=== PATIENT | female | born 1960 | race Caucasian/White ===

== ENCOUNTER 2023-03-27 15:40 | Emergency (ER) | payer BC, SELFPAY ==
[2023-03-27] VITALS (18 sets, daily range): BP systolic 116–137; BP diastolic 66–86; PULSE 69–87; RESP 11–23; TEMP 36.6; O2SAT 97–100
--- NOTE | 2023-03-27 15:45 | RT.EKG_ITS ---
APPROVED REPORT Exam: Resting ECG Reason for Exam: chest pain Patient Location: E HR:83 bpm ECG Measurements Heart Rate 83 AXIS VT 139 P 37 QRSd 70 QRS 12 QT 363 T 32 QTc 428 Conclusion Sinus rhythm...normal P axis, V-rate 60- 99 Low voltage, precordial leads...precordial leads <1.0mV Consider anteroseptal infarct...Q >30mS, dimin R, V1-V2
--- NOTE | 2023-03-27 16:45 | DI.RAD_ITS ---
Exam(s) XR CHEST 2V PA LATERAL EXAM: XR CHEST 2V PA LATERAL CLINICAL HISTORY: cough TECHNIQUE: 2D digital imaging was performed of the chest. Two images were obtained. PA and lateral views were obtained. COMPARISON: No exams were available for comparison FINDINGS: MEDIASTINUM: Normal. HEART: Normal. PULMONARY VASCULATURE: Normal. LUNGS: Clear. PLEURAL SPACE: No pleural effusion or pneumothorax. BONE:Within normal limits for the patient's age. There is a dextroscoliosis of the lower thoracic sp ine. OTHER FINDINGS:Normal. IMPRESSION: No acute pulmonary findings. DATA REPOSITORY: RADIATION DOSE DELIVERED:
[2023-03-27 17:10] LABS: Source Nasal/Nares
[2023-03-27] MEDS: Ondansetron 4 MG/2 ML VIAL IVP (17:17)
[2023-03-27] MEDS: Ketorolac 30 MG/ML VIAL IVP (17:17)
[2023-03-27] MEDS: Meclizine 25 MG TAB PO ×2 (17:18→20:07)
[2023-03-27] MEDS: Lactated Ringers 1,000 ML 1000 ML IV (17:32)
--- NOTE | 2023-03-27 17:34 | ED.GENADUL_ITS ---
Discharge Plan Disposition Patient Disposition: Home Condition: Stable Discharge Details Clinical Impression: Vertigo, URI (upper respiratory infection), Hypokalemia ED Provider: Dionisio Kaba Home Meds and New Rx's Prescriptions: New ondansetron HCl 4 mg tablet 4 mg PO Q8H PRNQty: 7 0RF Continued venlafaxine 25 mg Tablet 25 mg PO 1XD oxybutynin chloride 2.5 mg Tablet 2.5 mg PO 1XD loratadine [Claritin] 10 mg Tablet 10 mg PO 1XD No Action prochlorperazine maleate 10 mg tablet 10 mg PO Q8H PRNQty: 12 0RF meclizine 25 mg tablet 25 mg PO BID PRN (Reason: dizziness) Qty: 30 0RF Discharge Instructions Instructions: Meclizine (By mouth), Ondansetron (By mouth), Vertigo (ED), Hypokalemia (ED), Upper Respiratory Infection (ED) Additional Instructions: Take meclizine tonight as needed for vertigo. Take ondansetron as needed tomorrow for nausea. Please contact your primary care physician to arrange follow-up. Call tomorrow. Return to the ER immediately for any worsening or new concerning symptoms. Discharge Data Discharge Date/Time-TO BE ENTERED AT DEPARTURE: 03/27/23 20:17 Medical Decision Making 0 --63-year-old female here with left ear pain and associated vertigo with vomiting as well as 5 days of productive cough. Patient is saturating well and in no respiratory distress. She does have rales on auscultation of her right lower lung. Left TM is bulging. Patient neurologically intact. For pneumonia will obtain chest x-ray. We will give meclizine for vertigo as well as Zofran for nausea. We will treat your pain with Toradol. -- cxr interpreted by radiology: No acute cardiopulmonary disease. Labs reviewed. Mild hypokalemia noted. Patient reassessed and symptoms resolved. Feeling much better. Suspect peripheral vertigo related to URI. Results were discussed with the patient. Plan for discharge with outpatient follow-up. Disposition decision was made weighing the risks and benefits of hospitalization versus outpatient treatment, the risk for further decompensation, and the patient's wishes. The patient was stable and requested discharge. Prior to discharge, my usual and customary return precautions were reviewed with the patient - this included follow-up instructions and reason to return to the emergency department if condition worsens, does not improve as expected, or other new concerns arise. Lab Data Lab results reviewed: Yes I reviewed the patient's lab results. HPI General Mode of arrival: ambulatory . Date/Time Provider Initiated Documentation: 03/27/23 16:51 . Limitations to Documentation: no limitations . Information obtained by: patient . HPI Narrative: 63-year-old female presents with chief complaint dizziness. Patient notes left ear pain described as a pressure and associated dizziness that started yesterday. Dizziness is described as vertigo. Patient states she had a chest cold over the past 5 days with productive cough. Patient has associated vomiting secondary to her vertigo. Patient states that she had similar vertigo a few years ago that required treatment in emergency department. Patient denies associated weakness, numbness, tingling, visual changes, headache. Related Data Home Medications Medication Instructions Recorded Confirmed loratadine 10 mg tablet (Claritin) 10 mg PO 1XD 03/27/23 03/27/23 oxybutynin chloride 2.5 mg tablet 2.5 mg PO 1XD 03/27/23 03/27/23 venlafaxine 25 mg tablet 25 mg PO 1XD 03/27/23 03/27/23 ondansetron HCl 4 mg tablet 4 mg PO Q8H PRN #7 tabs 03/28/23 meclizine 25 mg tablet 25 mg PO BID PRN dizziness #30 tabs 03/29/23 prochlorperazine maleate 10 mg 10 mg PO Q8H PRN #12 tabs 03/29/23 tablet Previous Rx's Medication Instructions Recorded ondansetron HCl 4 mg tablet 4 mg PO Q8H PRN #7 tabs 03/28/23 meclizine 25 mg tablet 25 mg PO BID PRN dizziness #30 tabs 03/29/23 prochlorperazine maleate 10 mg 10 mg PO Q8H PRN #12 tabs 03/29/23 tablet Allergies Allergy/AdvReac Type Severity Reaction Status Date / Time diphenhydramine Allergy Unknown Unverified 03/29/23 16:27 [From Benadryl] azithromycin Allergy Unverified 03/27/23 15:57 [From Zithromax Z-José Luis] erythromycin base Allergy Unverified 03/27/23 15:57 Penicillins Allergy Unverified 03/27/23 15:57 General Stated Complaint: GenMedical ABNER: 3 Review of Systems All systems reviewed & are unremarkable except as noted in HPI and below Constitutional Constitutional: Denies fever(s) Eyes Eyes: Denies loss of vision Cardiovascular Cardiovascular: Reports as per HPI Musculoskeletal Musculoskeletal: Denies numbness Neurologic Neurologic: Denies localized weakness, Denies loss of vision, Denies numbness and Denies sensory deficit PFSH All Active Problems (Updated 03/29/23 @ 19:04 by Jeny Abrams NP) Vertigo (Acute) URI (upper respiratory infection) (Acute) Hypokalemia (Acute) Social History Smoking/Tobacco Use Status: Never Smoking risk assessment performed?: Yes Substance use type: does not use Housing: house Do you feel safe at home: Yes Do you feel safe in your relationship?: Yes Exam Const General: cooperative and no acute distress HENMT Ears: TM normal on the right, mastoids normal and TM abnormal bulging on the left; not with effusion Mouth: moist mucous membranes Eyes Conjunctivae: normal conjunctivae Sclera: normal sclerae Neck Neck: trachea midline and supple Resp Auscultation: rales on the right in the lower lung cobos, no rhonchi and no wheezes Cardio Rate: regular rate and not tachycardic Rhythm: regular rhythm GI Palpation: soft, not firm, no guarding, no masses, not rigid and nontender Skin General skin exam: no rashes or lesions noted Neuro General: patient alert, patient awake and tone normal Cognition: normal cognition Speech: speech normal Motor: strength 5/5 throughout Sensory Exam: no sensory deficits noted Coordination: [id number] test normal and Romberg test normal Other: Rapid alternating movements normal Extrem General: no edema Psych Appearance: grossly normal Mental Status: mental status grossly normal Affect: anxious affect Course Vital Signs Vital signs: Vital Signs Temperature 36.6 C 03/27/23 15:49 Pulse 87 03/27/23 15:49 Respiratory Rate 18 03/27/23 15:49 Blood Pressure 116/86 03/27/23 15:49 Pulse Oximetry 98 03/27/23 15:49 Temperature 36.6 C 03/27/23 15:49 Temperature Source Skin 03/27/23 15:49 Pulse 87 03/27/23 15:49 Respiratory Rate 12 03/27/23 17:11 Respiratory Effort Normal 03/27/23 17:11 Blood Pressure 116/86 03/27/23 15:49 Pulse Oximetry 98 03/27/23 15:49 Oxygen Delivery Method Room Air 03/27/23 15:49 Oxygen Flow Rate 0 03/27/23 15:49 Lab/Test Results Lab/Test Results: Laboratory Tests Range/Units 03/27/23 17:05 COVID-19 Source Nasal/Nares
[2023-03-27 17:40] LABS: COVID-19 PCR Negative (Negative)
[2023-03-27 17:40] LABS: Abs Immature Grans 0.01 10^3/uL (0.0-0.06); Absolute Basophil Count 0.04 10^3/uL (0.0-0.2); Absolute Eosinophil Count 0.13 10^3/uL (0.0-0.7); Absolute Lymphocyte Count 0.97 10^3/uL (1.2-3.4); Absolute Monocyte Count 0.65 10^3/uL (0.1-0.8); Basophils % 0.8; Eosinophils % 2.6; HCT 41.4 % (36.0-46.0); HGB 13.8 g/dL (11.2-15.7); Immature Grans % 0.2; Lymphocytes % 19.4; MCH 29.9 pg (27.0-33.0); MCHC 33.3 % (32.0-36.0); MCV 90 fL (80-95); MPV 9.6 fL (8.0-11.0); Platelet Count 243 10^3/uL (130-400); RBC 4.62 10^6/uL (3.93-5.22); RDW 12.9 % (11.7-14.6); RDW-SD 42.5 fL
[2023-03-27 17:57] LABS: ALT 34 U/L (14-59); AST 22 U/L (15-37); Albumin 3.5 g/dL (3.4-5.0); Alkaline Phosphatase 80 U/L (46-116); BUN 13 mg/dL (7-18); Bilirubin, Total 0.3 mg/dL (0.2-1.0); CREATININE 0.7 mg/dL (0.55-1.02); Calcium 9.1 mg/dL (8.5-10.1); Chloride 103 mmol/L (98-107); Estimated GFR 96.52 (mL/min/1.73m2); Glucose 106 mg/dL (74-106); Potassium 3.4 mmol/L (3.5-5.1); Sodium 139 mmol/L (136-145); Total Protein 7.4 g/dL (6.4-8.2)
--- NOTE | 2023-03-27 18:24 | DI.VRAD_ITS ---
PROCEDURE INFORMATION: Exam: XR Chest Exam date and time: 03/27/2023 6:12 PM Age: 63 years old Clinical indication: Cough TECHNIQUE: Imaging protocol: Radiologic exam of the chest. Views: 2 views. Total images: 2 COMPARISON: No relevant prior studies available. FINDINGS: Lungs: Lungs appear clear. No visible consolidation. No pulmonary masses. Pulmonary vascularity is normal. Pleural spaces: No pleural effusion or pneumothorax. Heart/Mediastinum: Heart size is normal. Bones/joints: No acute osseous abnormalities. Lower thoracic dextroscoliosis. IMPRESSION: No acute cardiopulmonary disease. Dictated and Authenticated by: Mariah Dubose MD. Ordering:DORINA Nichole MD
[2023-03-27] MEDS: Potassium Chloride 20 MEQ TABCR PO (20:07)
[2023-03-27] MEDS: Ondansetron O.D.T. 4 MG TABEF PO (20:07)
--- NOTE | 2023-03-28 11:40 | W.ED.FU ---
Date of service: 03/28/23 Time of Service: 11:41 Follow Up Plan: Notified by patient that prescription for zofran not received by pharmacy. ED visit note and discharge instructions by Dr. Kaba reviewed, plan at that time was for meclizine and zofran for home treatment. Unclear why medication was not successfullly transmitted. No CI to zofran noted on [facility] record review; short of course of zofran sent to patient's pharmacy.
--- NOTE | 2023-03-28 12:08 | NUR.NOTE ---
called stating that the prescription to help stop vomiting was not at the pharmacy. I looked up the chart, and asked Dr Mcgovern to send the odansetran to the pharmacy. It was noted in discharge instructions but not sent. Just called and notified hiim that the prescription was at the pharmacy.Nursing Note:
== END 2023-03-27 20:17 | disposition home or self-care (01) ==
PROVIDERS: Emergency Provider Student in an Organized Health Care Education/Training Program
DX: J06.9 Acute upper respiratory infection, unspecified (principal); R42 Dizziness and giddiness; E87.6 Hypokalemia
CPT/HCPCS: 80053; 87635; 93005; 96361; 96374; 96375; 99284; 71046; 85025; 93010; 99283; J1885; J2405

== ENCOUNTER 2023-03-29 14:09 | Emergency (ER) | payer BC, SELFPAY ==
--- NOTE | 2023-03-29 14:15 | RT.EKG_ITS ---
APPROVED REPORT Exam: Resting ECG Reason for Exam: Patient Location: E HR:63 bpm ECG Measurements Heart Rate 63 AXIS IA 175 P 6 QRSd 88 QRS 28 QT 465 T 31 QTc 477 Conclusion Sinus rhythm...normal P axis, V-rate 60- 99 sinus rhythm normal axis, normal intervals, non ischemic
[2023-03-29 14:19] VITALS: BP 146/79; PULSE 80; RESP 18; O2SAT 98
[2023-03-29] MEDS: Normal Saline 1,000 ML 1000 ML IV ×2 (16:07→17:40)
[2023-03-29] MEDS: Prochlorperazine 10 MG/2 ML VIAL IVP (16:10)
[2023-03-29 16:26] LABS: Abs Immature Grans 0.01 10^3/uL (0.0-0.06); Absolute Basophil Count 0.03 10^3/uL (0.0-0.2); Absolute Eosinophil Count 0.16 10^3/uL (0.0-0.7); Absolute Lymphocyte Count 1.51 10^3/uL (1.2-3.4); Absolute Neutrophil Count 1.93 10^3/uL (1.2-6.7); Basophils % 0.8; Eosinophils % 4.1; HCT 41.6 % (36.0-46.0); HGB 14.2 g/dL (11.2-15.7); Immature Grans % 0.3; Lymphocytes % 38.3; MCH 30.3 pg (27.0-33.0); MCHC 34.1 % (32.0-36.0); MCV 89 fL (80-95); MPV 10.1 fL (8.0-11.0); Monocytes % 7.6; Neutrophils % 48.9; Platelet Count 261 10^3/uL (130-400); RBC 4.68 10^6/uL (3.93-5.22); RDW 12.6 % (11.7-14.6); WBC 3.94 10^3/uL (4.4-10.8)
[2023-03-29 16:40] LABS: ALT 30 U/L (14-59); AST 26 U/L (15-37); Albumin 3.6 g/dL (3.4-5.0); Alkaline Phosphatase 78 U/L (46-116); Anion Gap 11.4 mmol/L (3-11); BUN 11 mg/dL (7-18); Bilirubin, Total 0.3 mg/dL (0.2-1.0); CO2 25.6 mmol/L (21.0-32.0); CREATININE 0.8 mg/dL (0.55-1.02); Calcium 9.3 mg/dL (8.5-10.1); Chloride 102 mmol/L (98-107); Estimated GFR 82.23 (mL/min/1.73m2); Glucose 147 mg/dL (74-106); Potassium 3.1 mmol/L (3.5-5.1); Sodium 139 mmol/L (136-145); Total Protein 7.5 g/dL (6.4-8.2)
--- NOTE | 2023-03-29 17:28 | ED.GENADUL_ITS ---
Discharge Plan Disposition Patient Disposition: Home Condition: Improving Discharge Details Clinical Impression: Vertigo, Hypokalemia Primary Care Provider: Unknown,Unknown ED Provider: eJny Abrams Home Meds and New Rx's Prescriptions: New prochlorperazine maleate 10 mg tablet 10 mg PO Q8H PRNQty: 12 0RF Continued venlafaxine 25 mg Tablet 25 mg PO 1XD oxybutynin chloride 2.5 mg Tablet 2.5 mg PO 1XD loratadine [Claritin] 10 mg Tablet 10 mg PO 1XD meclizine 25 mg tablet 25 mg PO BID PRN (Reason: dizziness) Qty: 30 0RF ondansetron HCl 4 mg tablet 4 mg PO Q8H PRNQty: 7 0RF Medical Decision Making Presents with intractable symptoms of vertigo and able to keep her p.o. medications down. Will obtain IV access give IV Compazine. She declines Benadryl. After receiving 1 L of normal saline and the Compazine she states that her symptoms are much improved. She is now able to open her eyes and move her head some. We will give a second liter of normal saline with 10 mEq of potassium to replete potassium of 3.1. She will also be given meclizine 25 mg orally as she is able to tolerate p.o. The patient is markedly improved after the above treatment and has been safely really ambulated. She is stating she feels able to be discharged to home at this point. Will dispense oral Compazine and meclizine for home use Medical Records Medical records reviewed: Yes I reviewed the patient's medical records. Lab Data Lab results reviewed: Yes I reviewed the patient's lab results. Lab results narrative: Laboratory Results - last 24 hr 03/29/23 03/29/23 14:50 14:50 WBC 3.94 L RBC 4.68 Hgb 14.2 Hct 41.6 MCV 89 MCH 30.3 MCHC 34.1 RDW 12.6 Plt Count 261 MPV 10.1 Immature Gran % 0.3 Neutrophils % 48.9 Lymphocytes % 38.3 Monocytes % 7.6 Eosinophils % 4.1 Basophils % 0.8 Nucleated RBC % 0.0 Absolute Neutrophils 1.93 Absolute Lymphocytes 1.51 Absolute Monocytes 0.30 Absolute Eosinophils 0.16 Absolute Basophils 0.03 Sodium 139 Potassium 3.1 L Chloride 102 Carbon Dioxide 25.6 Anion Gap 11.4 H BUN 11 Creatinine 0.8 Est GFR (CKD-EPI 2020) 82.23 Glucose 147 H Calcium 9.3 Total Bilirubin 0.3 AST 26 ALT 30 Alkaline Phosphatase 78 Total Protein 7.5 Albumin 3.6 HPI General Mode of arrival: ambulatory . Date/Time Provider Initiated Documentation: 03/29/23 14:25 . Limitations to Documentation: no limitations . Information obtained by: patient . HPI Narrative: This is a 63-year-old female patient with a past medical history significant for vertigo who continues to have her symptoms despite using ondansetron and meclizine. She states that she has been unable to keep these medications down so her symptoms have been ongoing. She has no new symptoms she has had no fever has reported symptoms similar to this in the past with viral illness. Related Data Home Medications Medication Instructions Recorded Confirmed loratadine 10 mg tablet (Claritin) 10 mg PO 1XD 03/27/23 03/27/23 meclizine 25 mg tablet 25 mg PO BID PRN dizziness #30 tabs 03/27/23 oxybutynin chloride 2.5 mg tablet 2.5 mg PO 1XD 03/27/23 03/27/23 venlafaxine 25 mg tablet 25 mg PO 1XD 03/27/23 03/27/23 ondansetron HCl 4 mg tablet 4 mg PO Q8H PRN #7 tabs 03/28/23 prochlorperazine maleate 10 mg 10 mg PO Q8H PRN #12 tabs 03/29/23 tablet Previous Rx's Medication Instructions Recorded meclizine 25 mg tablet 25 mg PO BID PRN dizziness #30 tabs 03/27/23 ondansetron HCl 4 mg tablet 4 mg PO Q8H PRN #7 tabs 03/28/23 prochlorperazine maleate 10 mg 10 mg PO Q8H PRN #12 tabs 03/29/23 tablet Allergies Allergy/AdvReac Type Severity Reaction Status Date / Time diphenhydramine Allergy Unknown Unverified 03/29/23 16:27 [From Benadryl] azithromycin Allergy Unverified 03/27/23 15:57 [From Zithromax Z-José Luis] erythromycin base Allergy Unverified 03/27/23 15:57 Penicillins Allergy Unverified 03/27/23 15:57 General Stated Complaint: Nausea/Vomit/Diar ABNER: 3 Review of Systems All systems reviewed & are unremarkable except as noted in HPI and below PFSH All Active Problems (Updated 03/29/23 @ 19:04 by Jeny Abrams NP) Vertigo (Acute) URI (upper respiratory infection) (Acute) Hypokalemia (Acute) Social History Smoking/Tobacco Use Status: Never Smoking risk assessment performed?: Yes Substance use type: does not use Housing: house Do you feel safe at home: Yes Do you feel safe in your relationship?: Yes Exam Const General: ill appearing acutely Nutritional Appearance: average body habitus Orientation: alert, awake and oriented x3 HENMT Head: normal to inspection, normocephalic and atraumatic Face and sinus: normal facial exam Mouth: oral mucosae normal Resp Effort & Inspection: normal respiratory effort Cardio Rate: regular rate Rhythm: regular rhythm GI Inspection: normal to inspection Skin General skin exam: no rashes or lesions noted Neuro General: patient alert, patient awake, patient oriented x3 and no focal motor deficits Extrem General: normal to inspection and full ROM Course Vital Signs Vital signs: Vital Signs Pulse 80 03/29/23 14:19 Respiratory Rate 18 03/29/23 14:19 Blood Pressure 146/79 H 03/29/23 14:19 Pulse Oximetry 98 03/29/23 14:19 Pulse 80 03/29/23 14:19 Respiratory Rate 18 03/29/23 14:19 Respiratory Effort Normal, Non-Labored 03/29/23 16:33 Blood Pressure 146/79 H 03/29/23 14:19 Blood Pressure Position Sitting 03/29/23 14:19 Pulse Oximetry 98 03/29/23 14:19 Oxygen Delivery Method Room Air 03/29/23 14:19 Oxygen Flow Rate 0 03/29/23 14:19 Pain Level 0 03/29/23 14:19 Lab/Test Results Lab/Test Results: Laboratory Tests Range/Units 03/29/23 03/29/23 14:50 14:50 WBC (4.4-10.8) 10^3/uL 3.94 L RBC (3.93-5.22) 10^6/uL 4.68 Hgb (11.2-15.7) g/dL 14.2 Hct (36.0-46.0) % 41.6 MCV (80-95) fL 89 MCH (27.0-33.0) pg 30.3 MCHC (32.0-36.0) % 34.1 RDW (11.7-14.6) % 12.6 Plt Count (130-400) 10^3/uL 261 MPV (8.0-11.0) fL 10.1 Immature Gran % 0.3 Neutrophils % 48.9 Lymphocytes % 38.3 Monocytes % 7.6 Eosinophils % 4.1 Basophils % 0.8 Nucleated RBC % (0.0-0.3) % 0.0 Absolute Neutrophils (1.2-6.7) 10^3/uL 1.93 Absolute Lymphocytes (1.2-3.4) 10^3/uL 1.51 Absolute Monocytes (0.1-0.8) 10^3/uL 0.30 Absolute Eosinophils (0.0-0.7) 10^3/uL 0.16 Absolute Basophils (0.0-0.2) 10^3/uL 0.03 Sodium (136-145) mmol/L 139 Potassium (3.5-5.1) mmol/L 3.1 L Chloride (98-107) mmol/L 102 Carbon Dioxide (21.0-32.0) mmol/L 25.6 Anion Gap (3-11) mmol/L 11.4 H BUN (7-18) mg/dL 11 Creatinine (0.55-1.02) mg/dL 0.8 Est GFR (CKD-EPI 2020) (mL/min/1.73m2) 82.23 Glucose (74-106) mg/dL 147 H Calcium (8.5-10.1) mg/dL 9.3 Total Bilirubin (0.2-1.0) mg/dL 0.3 AST (15-37) U/L 26 ALT (14-59) U/L 30 Alkaline Phosphatase (46-116) U/L 78 Total Protein (6.4-8.2) g/dL 7.5 Albumin (3.4-5.0) g/dL 3.6 PAWSS Have you Been Recently Intoxicated or Drunk Within the Last 30 days?: No Have you Ever Experienced Previous Episodes of Alcohol Withdrawal?: No Have you ever Experienced Withdrawal Seizures?: No Have you ever Experienced Delirium Tremens(DT)s?: No Have you ever undergone Alcohol Rehabilitation Treatment (i.e, inpt ot outpatient treatment programs)?: No Have you ever Experienced Blackouts?: No Have you ever Combined Alcohol with other Downers within the last 90 days?: No Have you ever Combined Alcohol with any other Substance of Abuse during the last 90 days?: No Positive Blood Alcohol level on Presentation? [PCS.BAL]: No Evidence of Increased Autonomic Activity (i.e. HR>120, tremor, sweating, agitation, nausea)?: No Result: 0
[2023-03-29] MEDS: Meclizine 25 MG TAB PO ×2 (17:40→19:18)
[2023-03-29] MEDS: POTASSIUM CHLORIDE 10 MEQ/100 ML BAG 100 MEQ IVPB (17:40)
[2023-03-29 17:43] LABS: Magnesium 1.9 mg/dL (1.8-2.4)
[2023-03-29 17:52] VITALS: BP 124/72; PULSE 66; RESP 18; O2SAT 99
[2023-03-29 18:30] VITALS: BP 142/73; PULSE 72; RESP 16; O2SAT 99
[2023-03-29] MEDS: Prochlorperazine 10 MG TAB PO (19:18)
[2023-03-29 19:19] VITALS: BP 143/94; PULSE 92; RESP 16; TEMP 36.5; O2SAT 98
== END 2023-03-29 19:20 | disposition home or self-care (01) ==
PROVIDERS: Emergency Provider Nurse Practitioner Acute Care
DX: R42 Dizziness and giddiness (principal); E87.6 Hypokalemia; R11.2 Nausea with vomiting, unspecified
CPT/HCPCS: 80053; 93005; 96374; 96375; 99283; 83735; 85025; 93010; J0780; J3480

== ENCOUNTER 2023-04-08 10:05 | Emergency (ER) | payer BC, SELFPAY ==
[2023-04-08] VITALS (20 sets, daily range): BP systolic 134–172; BP diastolic 73–83; PULSE 67–78; RESP 20; TEMP 36.9; O2SAT 95–100
[2023-04-08 10:48] LABS: Abs Immature Grans 0.06 10^3/uL (0.0-0.06); Absolute Basophil Count 0.05 10^3/uL (0.0-0.2); Absolute Eosinophil Count 0.11 10^3/uL (0.0-0.7); Absolute Lymphocyte Count 1.33 10^3/uL (1.2-3.4); Absolute Monocyte Count 0.53 10^3/uL (0.1-0.8); Absolute Neutrophil Count 6.48 10^3/uL (1.2-6.7); Basophils % 0.6; Eosinophils % 1.3; HCT 42.9 % (36.0-46.0); HGB 14.7 g/dL (11.2-15.7); Immature Grans % 0.7; Lymphocytes % 15.5; MCH 30.2 pg (27.0-33.0); MCHC 34.3 % (32.0-36.0); MCV 88 fL (80-95); MPV 9.1 fL (8.0-11.0); Monocytes % 6.2; Neutrophils % 75.7; Platelet Count 304 10^3/uL (130-400); RBC 4.86 10^6/uL (3.93-5.22); RDW 12.1 % (11.7-14.6); RDW-SD 39.5 fL; WBC 8.56 10^3/uL (4.4-10.8)
[2023-04-08 11:11] LABS: ALT 38 U/L (14-59); AST 22 U/L (15-37); Albumin 3.8 g/dL (3.4-5.0); Alkaline Phosphatase 83 U/L (46-116); Anion Gap 9.5 mmol/L (3-11); BUN 17 mg/dL (7-18); Bilirubin, Total 0.4 mg/dL (0.2-1.0); CO2 27.5 mmol/L (21.0-32.0); CREATININE 0.8 mg/dL (0.55-1.02); Calcium 9.3 mg/dL (8.5-10.1); Chloride 101 mmol/L (98-107); Estimated GFR 82.23 (mL/min/1.73m2); Glucose 140 mg/dL (74-106); Magnesium 1.8 mg/dL (1.8-2.4); Potassium 3.6 mmol/L (3.5-5.1); Sodium 138 mmol/L (136-145); Total Protein 7.7 g/dL (6.4-8.2)
--- NOTE | 2023-04-08 11:15 | DI.MRI_ITS ---
Exam(s) MR BRAIN WO EXAM: MR BRAIN WO CLINICAL HISTORY: vertigo and nasusea 3 weeks TECHNIQUE: Multiplanar multisequence MRI of the brain was performed. Additional thin slice IAC sequence performed COMPARISON: No exams were available for comparison FINDINGS: CEREBRAL PARENCHYMA: There is no evidence of intracranial hemorrhage, mass effect, or shift of midline structures. There are no extra-axial fluid collections. Ventricles are not enlarged or shifted. There is no significant focal signal abnormality in the cerebellar hemispheres nor within the danisha, m idbrain, and thalami. There are few small nonspecific FLAIR bright white matter signal abnormalities, largest in the right frontal lobe white matter measuring approximately 4 mm. Not associated with hemorrhage, surrounding edema, nor restricted diffusion. There is no significant focal signal abnormality evident on diffusion imaging to suggest acute ischem ic event. IAC'S: No evidence of mass in the cerebellopontine angles and no evidence of intra canalicular acoust ic neuroma. PITUITARY GLAND: No mass nor parasellar abnormality. No obvious abnormality in the cavernous sinuses. FLOW VOIDS: The expected flow void are noted. No evidence of obvious aneurysm nor obvious vascular ma lformation. PARANASAL SINUSES: The visualized paranasal sinuses appear unremarkable. No obvious finding ORBITS: No obvious findings. IMPRESSION: No significant acute intracranial findings on this noninfused MRI scan of the brain. There are few small nonspecific white matter foci as described above. Called by myself to ER physician. DATA REPOSITORY:
--- NOTE | 2023-04-08 11:32 | ED.GENADUL_ITS ---
Discharge Plan Disposition Patient Disposition: Home Condition: Stable Discharge Details Clinical Impression: Peripheral vertigo Primary Care Provider: Unknown,Unknown ED Provider: Dionisio Kaba Home Meds and New Rx's Prescriptions: New diazepam 2 mg tablet 2 mg PO BID PRN (Reason: vertigo) Qty: 20 0RF ondansetron 4 mg tablet,disintegrating 4 mg PO Q8H PRNQty: 20 0RF Continued venlafaxine 25 mg Tablet 25 mg PO 1XD oxybutynin chloride 2.5 mg Tablet 2.5 mg PO 1XD loratadine [Claritin] 10 mg Tablet 10 mg PO 1XD meclizine 25 mg tablet 25 mg PO BID PRN (Reason: dizziness) Qty: 30 0RF Discontinued ondansetron HCl 4 mg tablet 4 mg PO Q8H PRNQty: 7 0RF prochlorperazine maleate 10 mg tablet 10 mg PO Q8H PRNQty: 12 0RF Patient Comments: pt states not taking Discharge Instructions Instructions: Vertigo (ED) Additional Instructions: MRI of your brain did not show any acute infarct or mass. There were no significant acute intracranial findings. There was noted a few nonspecific white matter foci. Please be sure to discuss results with your primary care physician. Please follow-up with physical therapy for vestibular rehab. Please contact your primary care physician to arrange follow-up. Return to the ER immediately for any worsening or new concerning symptoms. Stand Alone Forms: Physical Therapy Referral Referrals: [facility] [Provider Group] Discharge Data Discharge Date/Time-TO BE ENTERED AT DEPARTURE: 04/08/23 13:41 Medical Decision Making 1135 -?63-year-old female with history of vertigo, here with 2 weeks of persistent vertigo with associated nausea and vomiting. Patient was seen here for similar on 03/27, 03/28 and 03/29. She is hemodynamically stable. Neurologic exam limited today as patient is unable to tolerate secondary to nausea and vomiting. Fatou maneuver has not been helpful and in fact worsened her symptoms. I will give IV fluid and IV antiemetic. Consider central neurologic process and will obtain MRI of the brain. 1315 --MRI of the brain was interpreted by radiology:No significant acute intracranial findings on this noninfused MRI scan of the brain. There are few small nonspecific white matter foci as described above. Pt reassessed and feeling better after antiemetic and diazepam given for vertigo. Plan for outpatient follow-up with PCP and will refer to physical therapy for vestibular rehab. Patient is interested in pursuing specialty follow-up with ear nose and throat given her prior injury. I will refer to Dr. Olguin. Lab Data Lab results reviewed: Yes I reviewed the patient's lab results. Labs: Laboratory Tests Range/Units 04/08/23 04/08/23 10:35 10:35 WBC (4.4-10.8) 10^3/uL 8.56 RBC (3.93-5.22) 10^6/uL 4.86 Hgb (11.2-15.7) g/dL 14.7 Hct (36.0-46.0) % 42.9 MCV (80-95) fL 88 MCH (27.0-33.0) pg 30.2 MCHC (32.0-36.0) % 34.3 RDW (11.7-14.6) % 12.1 Plt Count (130-400) 10^3/uL 304 MPV (8.0-11.0) fL 9.1 Immature Gran % 0.7 Neutrophils % 75.7 Lymphocytes % 15.5 Monocytes % 6.2 Eosinophils % 1.3 Basophils % 0.6 Nucleated RBC % (0.0-0.3) % 0.0 Absolute Neutrophils (1.2-6.7) 10^3/uL 6.48 Absolute Lymphocytes (1.2-3.4) 10^3/uL 1.33 Absolute Monocytes (0.1-0.8) 10^3/uL 0.53 Absolute Eosinophils (0.0-0.7) 10^3/uL 0.11 Absolute Basophils (0.0-0.2) 10^3/uL 0.05 Sodium (136-145) mmol/L 138 Potassium (3.5-5.1) mmol/L 3.6 Chloride (98-107) mmol/L 101 Carbon Dioxide (21.0-32.0) mmol/L 27.5 Anion Gap (3-11) mmol/L 9.5 BUN (7-18) mg/dL 17 Creatinine (0.55-1.02) mg/dL 0.8 Est GFR (CKD-EPI 2020) (mL/min/1.73m2) 82.23 Glucose (74-106) mg/dL 140 H Calcium (8.5-10.1) mg/dL 9.3 Magnesium (1.8-2.4) mg/dL 1.8 Total Bilirubin (0.2-1.0) mg/dL 0.4 AST (15-37) U/L 22 ALT (14-59) U/L 38 Alkaline Phosphatase (46-116) U/L 83 Total Protein (6.4-8.2) g/dL 7.7 Albumin (3.4-5.0) g/dL 3.8 HPI General Mode of arrival: ambulatory . Date/Time Provider Initiated Documentation: 04/08/23 10:06 . Limitations to Documentation: no limitations . Information obtained by: patient . HPI Narrative: 63-year-old female with history of vertigo presents with chief complaint of vertigo. Patient notes she has had vertigo over the past 2 weeks. Symptoms persistent and at times severe. She has associated nausea and vomiting. Patient was seen here in the emergency department little over a week ago for the symptoms and did improve with IV antiemetic. After returning home symptoms returned. Patient has no associated visual change. No numbness or tingling. No headache. Related Data Home Medications Medication Instructions Recorded Confirmed loratadine 10 mg tablet (Claritin) 10 mg PO 1XD 03/27/23 04/08/23 oxybutynin chloride 2.5 mg tablet 2.5 mg PO 1XD 03/27/23 04/08/23 venlafaxine 25 mg tablet 25 mg PO 1XD 03/27/23 04/08/23 meclizine 25 mg tablet 25 mg PO BID PRN dizziness #30 tabs 03/29/23 04/08/23 diazepam 2 mg tablet 2 mg PO BID PRN vertigo #20 tabs 04/08/23 ondansetron 4 mg disintegrating 4 mg PO Q8H PRN #20 tabs 04/08/23 tablet Previous Rx's Medication Instructions Recorded meclizine 25 mg tablet 25 mg PO BID PRN dizziness #30 tabs 03/29/23 diazepam 2 mg tablet 2 mg PO BID PRN vertigo #20 tabs 04/08/23 ondansetron 4 mg disintegrating 4 mg PO Q8H PRN #20 tabs 04/08/23 tablet Allergies Allergy/AdvReac Type Severity Reaction Status Date / Time diphenhydramine Allergy Unknown Unverified 03/29/23 16:27 [From Benadryl] azithromycin Allergy Unverified 03/27/23 15:57 [From Zithromax Z-José Luis] erythromycin base Allergy Unverified 03/27/23 15:57 Penicillins Allergy Unverified 03/27/23 15:57 General Stated Complaint: Nausea/Vomit/Diar ABNER: 3 Review of Systems All systems reviewed & are unremarkable except as noted in HPI and below Constitutional Constitutional: Denies fever(s) Cardiovascular Cardiovascular: Denies chest pain Gastrointestinal Gastrointestinal: Denies abdominal pain, Reports nausea and Reports vomiting Neurologic Neurologic: Reports as per HPI PFSH All Active Problems (Updated 04/08/23 @ 13:21 by Dionisio Kaba MD) Vertigo (Acute) URI (upper respiratory infection) (Acute) Hypokalemia (Acute) Peripheral vertigo (Acute) Social History Smoking/Tobacco Use Status: Never Smoking risk assessment performed?: Yes Substance use type: does not use Housing: house Do you feel safe at home: Yes Do you feel safe in your relationship?: Yes Exam Const General: cooperative and no acute distress HENMT Head: normocephalic and atraumatic Mouth: moist mucous membranes Eyes Conjunctivae: normal conjunctivae Sclera: normal sclerae EOM: EOM intact bilaterally Other: Patient has significant difficulty with horizontal gaze, reproducing symptoms Neck Neck: trachea midline and supple Resp Auscultation: clear to auscultation bilaterally, no rales, no rhonchi and no wheezes Cardio Rate: regular rate and not tachycardic Rhythm: regular rhythm GI Palpation: soft, not firm, no guarding, no masses, not rigid and nontender Skin General skin exam: no rashes or lesions noted Neuro General: patient alert, patient awake, patient oriented x3 and tone normal Cranial Nerves: CN's II-XI intact bilaterally Cognition: normal cognition Speech: speech normal Motor: strength 5/5 throughout Sensory Exam: no sensory deficits noted Other: exam somewhat limited as patient has significant nausea with eye movements and movements of the head Extrem General: no edema Psych Appearance: grossly normal Mental Status: mental status grossly normal Speech and Movement: speech and movement normal Course Vital Signs Vital signs: Vital Signs Temperature 36.9 C 04/08/23 09:59 Pulse 78 04/08/23 09:59 Respiratory Rate 20 04/08/23 09:59 Blood Pressure 156/79 H 04/08/23 09:59 Pulse Oximetry 100 04/08/23 09:59 Temperature 36.9 C 04/08/23 09:59 Temperature Source Oral 04/08/23 09:59 Pulse 70 04/08/23 10:05 Respiratory Rate 20 04/08/23 09:59 Respiratory Effort Normal 04/08/23 10:06 Blood Pressure 156/79 H 04/08/23 10:05 Blood Pressure Mean 107 04/08/23 10:05 Blood Pressure Position Supine 04/08/23 09:59 Pulse Oximetry 99 04/08/23 10:05 Oxygen Delivery Method Room Air 04/08/23 09:59 Oxygen Flow Rate 0 04/08/23 09:59 Lab/Test Results Lab/Test Results: Laboratory Tests Range/Units 04/08/23 04/08/23 10:35 10:35 WBC (4.4-10.8) 10^3/uL 8.56 RBC (3.93-5.22) 10^6/uL 4.86 Hgb (11.2-15.7) g/dL 14.7 Hct (36.0-46.0) % 42.9 MCV (80-95) fL 88 MCH (27.0-33.0) pg 30.2 MCHC (32.0-36.0) % 34.3 RDW (11.7-14.6) % 12.1 Plt Count (130-400) 10^3/uL 304 MPV (8.0-11.0) fL 9.1 Immature Gran % 0.7 Neutrophils % 75.7 Lymphocytes % 15.5 Monocytes % 6.2 Eosinophils % 1.3 Basophils % 0.6 Nucleated RBC % (0.0-0.3) % 0.0 Absolute Neutrophils (1.2-6.7) 10^3/uL 6.48 Absolute Lymphocytes (1.2-3.4) 10^3/uL 1.33 Absolute Monocytes (0.1-0.8) 10^3/uL 0.53 Absolute Eosinophils (0.0-0.7) 10^3/uL 0.11 Absolute Basophils (0.0-0.2) 10^3/uL 0.05 Sodium (136-145) mmol/L 138 Potassium (3.5-5.1) mmol/L 3.6 Chloride (98-107) mmol/L 101 Carbon Dioxide (21.0-32.0) mmol/L 27.5 Anion Gap (3-11) mmol/L 9.5 BUN (7-18) mg/dL 17 Creatinine (0.55-1.02) mg/dL 0.8 Est GFR (CKD-EPI 2020) (mL/min/1.73m2) 82.23 Glucose (74-106) mg/dL 140 H Calcium (8.5-10.1) mg/dL 9.3 Magnesium (1.8-2.4) mg/dL 1.8 Total Bilirubin (0.2-1.0) mg/dL 0.4 AST (15-37) U/L 22 ALT (14-59) U/L 38 Alkaline Phosphatase (46-116) U/L 83 Total Protein (6.4-8.2) g/dL 7.7 Albumin (3.4-5.0) g/dL 3.8 PAWSS Have you Been Recently Intoxicated or Drunk Within the Last 30 days?: No Have you Ever Experienced Previous Episodes of Alcohol Withdrawal?: No Have you ever Experienced Withdrawal Seizures?: No Have you ever Experienced Delirium Tremens(DT)s?: No Have you ever undergone Alcohol Rehabilitation Treatment (i.e, inpt ot outpatient treatment programs)?: No Have you ever Experienced Blackouts?: No Have you ever Combined Alcohol with other Downers within the last 90 days?: No Have you ever Combined Alcohol with any other Substance of Abuse during the last 90 days?: No Positive Blood Alcohol level on Presentation? [PCS.BAL]: No Evidence of Increased Autonomic Activity (i.e. HR>120, tremor, sweating, agitation, nausea)?: No Result: 0
[2023-04-08] MEDS: Lactated Ringers 1,000 ML 1000 ML IV (11:36)
[2023-04-08] MEDS: Metoclopramide 10 MG/2 ML VIAL IVP (11:36)
[2023-04-08] MEDS: diazePAM 2 MG TAB PO (13:36)
== END 2023-04-08 13:41 | disposition home or self-care (01) ==
PROVIDERS: Emergency Provider Student in an Organized Health Care Education/Training Program
DX: H81.399 Other peripheral vertigo, unspecified ear (principal)
CPT/HCPCS: 80053; 96365; 96376; 99284; 70551; 83735; 85025; J2765